=== PATIENT | male | born 1980 | race Caucasian/White ===

== ENCOUNTER 2017-03-08 13:11 | Emergency (ER) | payer MEDICARE ==
[~2017-03-08] VITALS: Ht 185.4 cm; Wt 104.5 kg
[2017-03-08 13:12] VITALS: BP 137/73; PULSE 88; TEMP 98.1
[2017-03-08] MEDS ORDERED: MIRTAZAPINE7.5 MG (13:14)
[2017-03-08] MEDS ORDERED: ZYPREXA2.5 MG (13:14)
== END 2017-03-08 14:05 | disposition home or self-care (01) ==
LOC: COL.ER 13:11
DX: K12.0 Recurrent oral aphthae (principal); K08.89 Other specified disorders of teeth and supporting structures; F20.9 Schizophrenia, unspecified